=== PATIENT | female | born 1955 | race Hispanic/Latino ===

== ENCOUNTER → 2019-02-23 | Outpatient (CLI) | payer BC | END | disposition home or self-care (01) | LOC: RAH 07:39 | PROVIDERS: ATTEND Family Medicine | DX: Z12.31 Encounter for screening mammogram for malignant neoplasm of breast (principal) | CPT/HCPCS: 77067 ==

== ENCOUNTER 2019-09-23 06:58 | Inpatient (IN) | payer BC ==
[~2019-09-23] VITALS: Ht 170.2 cm; Wt 72.6 kg
[2019-09-23] VITALS (21 sets, daily range): BP systolic 119–159; BP diastolic 44–76
[~2019-09-23 06:58] MED LIST: ONDANSETRON HCL 4 MG/2 ML VIAL ONE
[2019-09-23 07:13] LABS: BASOPHILS % (AUTO) 0.3 % (0.0-5.0); EOSINOPHILS % (AUTO) 0.2 % (0.0-8.0); HEMATOCRIT 32.6 % (36-48); LYMPHOCYTES % (AUTO) 5.5 % (21.0-51.0); MEAN CORPUSCULAR HEMOGLOBIN 30.9 pg (27.0-33.0); MEAN CORPUSCULAR HGB CONC 33.1 g/dL (32.0-36.0); MEAN CORPUSCULAR VOLUME 93.1 fL (79-99); MONOCYTES % (AUTO) 3.8 % (3.0-13.0); NEUTROPHILS % (AUTO) 89.2 % (40.0-77.0); PLATELET COUNT (AUTO) 465 K/uL (130-400); RED CELL DISTRIBUTION WIDTH 13.7 % (11.0-15.5)
[2019-09-23 07:16] LABS: WHITE BLOOD COUNT (AUTO) 31.5 K/uL (4.8-10.8)
[2019-09-23 07:22] LABS: CREATININE 0.9 mg/dL (0.5-1.5)
[2019-09-23 07:29] LABS: ALBUMIN 2.4 g/dL (3.5-5.0); BILIRUBIN,TOTAL 0.9 mg/dL (0.2-1.0); TOTAL PROTEIN, SERUM 6.4 g/dL (6.0-8.3)
[2019-09-23 07:38] LABS: BAND NEUTROPHILS % (MANUAL) 1 % (0-2); LYMPHOCYTES % (MANUAL) 10 % (22-44); MAN.DIFF COMMENT-IMPRESSION MANUAL DIFFERENTIAL; PLATELET MORPHOLOGY COMMENT SLIGHT INCREASED; SEGMENTED NEUTROPHILS % 89 % (40-70)
[2019-09-23 07:45] LABS: APPEARANCE,URINE Clear (CLEAR); BILIRUBIN,URINE Negative (NEGATIVE); COLOR,URINE Yellow (YELLOW); GLUCOSE, URINE (UA) 250 mg/dL (NEGATIVE); KETONES,URINE Negative (NEGATIVE); LEUKOCYTE ESTERASE ,URINE Negative (NEGATIVE); NITRATE,URINE Negative (NEGATIVE); OCCULT BLOOD,URINE Negative (NEGATIVE); PROTEIN,URINE POS 2+ mg/dL (NEGATIVE)
[2019-09-23] MEDS ORDERED: ZOSYN 3.375GM+NS 50ML 50 ML IV ONE (07:46)
[2019-09-23] MEDS ORDERED: MORPHINE SULFATE 4 MG/1ML SYG ONE ×2 (07:48→10:51)
[2019-09-23] MEDS ORDERED: SODIUM CHLORIDE 0.9% 1000ML 1,000 ML IV ONE ×3 (07:48→11:25)
[2019-09-23 07:51] LABS: BACTERIA,URINE Rare /HPF (None Seen); RBC,URINE 0-1 /HPF (0-1); SQUAMOUS EPITHELIAL CELL,UR Moderate /HPF (0-2)
[2019-09-23] MEDS ORDERED: VANCOMYCIN 1GM+NS 250ML 250 ML IV ONE (09:10)
[2019-09-23] MEDS ORDERED: ONDANSETRON HCL 4 MG/2 ML VIAL ONE ×2 (09:39→18:11)
[2019-09-23] MEDS ORDERED: SODIUM CHLORIDE 0.9% 100 ML IV ONE (10:11)
[2019-09-23] MEDS ORDERED: SODIUM CHLORIDE 0.9% 250 ML IV ONE ×2 (10:32→23:27)
[2019-09-23 10:38] LABS: INR 1.02 (0.85-1.15); PARTIAL THROMBOPLASTIN TIME 32.7 SEC (26.3-35.5); PROTHROMBIN TIME 10.7 SEC (9.6-11.6)
[2019-09-23] MEDS ORDERED: ACETAMINOPHEN 325 MG TAB PO PRN (11:15)
[2019-09-23] MEDS ORDERED: MORPHINE SULFATE 2 MG/ML 1ML SYG IVP PRN (11:15)
[2019-09-23] MEDS ORDERED: VANCOMYCIN PROTOCOL PER PHARMACY IV SCH (11:15)
[2019-09-23] MEDS ORDERED: ONDANSETRON HCL 4 MG/2 ML VIAL IVP PRN (11:15)
[2019-09-23] MEDS ORDERED: SODIUM CHLORIDE 0.9% 1000ML 1,000 ML IV SCH (11:15)
[2019-09-23] MEDS ORDERED: MORPHINE SULFATE 4 MG/1ML SYG IVP PRN (13:30)
[2019-09-23 13:55] LABS: HEMATOCRIT 26.9 % (36-48)
[2019-09-23] MEDS ORDERED: FLUCONAZOLE 200 MG/NS 100 ML 100 ML IV SCH (14:00)
[2019-09-23] MEDS: FLUCONAZOLE 200 MG/NS 100 ML 100 ML IV SCH (14:30)
--- NOTE | 2019-09-23 15:33 | NUR ---
DCP: HOME met with pt's Jhon Vargas [phone]. reports pt retired from [employer] job last week. Prior to admission pt was independent, no DME or in home care services. states plan is home at discharge Addendum: 09/23/19 at 1535 by SHAYY DEL CASTILLO SS Amended: Links added.
[2019-09-23] MEDS: ZOSYN 3.375GM+NS 50ML 50 ML IV SCH ×2 (15:53→23:52)
[2019-09-23] MEDS ORDERED: NEOSTIGMINE 5MG/5ML SYR IV ONE (18:11)
[2019-09-23] MEDS ORDERED: DEXAMETHASONE SOD PHOSPHATE 10MG/ML 1ML VIAL ONE (18:11)
[2019-09-23] MEDS ORDERED: MIDAZOLAM HCL 1 MG/ML 2ML VIAL ONE (18:11)
[2019-09-23] MEDS ORDERED: GLYCOPYRROLATE 1 MG/5 ML SYRINGE ONE (18:11)
[2019-09-23] MEDS ORDERED: SUCCINYLCHOLINE 200MG/10ML SYR ONE (18:11)
[2019-09-23] MEDS ORDERED: PROPOFOL 10 MG/ML 20ML VIAL IV ONE (18:11)
[2019-09-23] MEDS ORDERED: LIDOCAINE PF 2% 5ML ABBOJECT ONE (18:11)
[2019-09-23] MEDS ORDERED: FENTANYL CITRATE PF 50 MCG/1 ML 2ML VIAL ONE (18:12)
[2019-09-23] MEDS ORDERED: ROCURONIUM 10MG/1ML SYR 10 MG/ML ML ONE (18:12)
[2019-09-23] MEDS ORDERED: ALBUMIN (HUMAN) 5% 500 ML IV ONE (19:15)
[2019-09-23] MEDS ORDERED: PROPOFOL 1000 MG/100 ML 100 ML IV ONE (20:38)
--- NOTE | 2019-09-23 20:45 | NUR ---
OR 2020 REPORT RECEIVED FROM MAREK FONSECA FROM OR. 2040 PATIENT ARRIVED VIA BED TO ROOM 209 ACCOMPANIED BY RN AND AVELINA LY. PATIENT ARRIVED INTUBATED. RT AT BEDSIDE PROVIDED VENT SETTINGS AND CONNECTED TO VENTILATOR. MIDLINE INCISION TO ABDOMEN NOTED W KELLY DRAIN. KELLY DRAINING SANGUINEOUS FLUID. NG TO LEFT NARE WITH BROWN DRAINAGE NOTED. PATIENT COLD TO TOUCH, NORMOTHERMIC. VS WNL. BRUISING NOTED TO EYES, CHIN/NECK AND ABDOMEN FROM RECENT COSMETIC PROCEDURES. ORDERS RECEIVED FROM [employer]. ENTERED INTO SYSTEM. 2042 DR CM CALLED AND PROVIDED UPDATED IN INTERVENTION PERFORMED IN OR. STATED WAS NOTE ABLE TO LOCATE SPOUSE AFTER PROCEDURE. ASSESSMENT COMPLETED.
[2019-09-23] MEDS ORDERED: ZOSYN 3.375GM+NS 50ML 50 ML IV SCH (21:00)
[2019-09-23] MEDS ORDERED: PROPOFOL 1000 MG/100 ML IV PRN (21:00)
[2019-09-23] MEDS: VANCOMYCIN 1GM+NS 250ML 250 ML IV SCH (21:39)
[2019-09-23 21:40] LABS: HEMATOCRIT 21.3 % (36-48)
--- NOTE | 2019-09-23 21:56 | NUR ---
XRAY RADIOLOGY PAGED AGAIN. NOTIFIED OF PENDING CXR POST OP/ETT PLACEMENT
[2019-09-23 22:14] LABS: ABG BASE EXCESS -3.9 mmol/L (-2.0-3.0); ABG HCO3 20.6 mmol/L (21.0-28.0); ABG OXYGEN SATURATION 99.2 % (95.0-99.0); ABG PCO2 36 mmHg (32-45)
--- NOTE | 2019-09-23 22:25 | NUR ---
CRITICAL CARE CXR COMPLETED. ABG COMPLETED. FIO2 TITRATED TO 40%. H/H RESULTED WITH HGB 6.8. PATIENT HEMODYNAMICALLY STABLE. SEDATED WITH PROPOFOL. NOW WITHDRAWING TO PAIN. CC DR FLORES CALLED AND UPDATED ON PATIENT CONDITION. ABG AND MOST RECENT LAB RESULTS PROVIDED. ORDERS RECEIVED AND ENTERED INTO SYSTEM
[2019-09-23] MEDS ORDERED: FENTANYL CITRATE PF 0.05 MG/ML 1,000 MCG in SODIUM CHLORIDE 0.9% 100 ML IVPB PRN (22:30)
[2019-09-23] MEDS ORDERED: FENTANYL 1000MCG+NS 100ML 100 ML ONE (23:26)
[2019-09-23] MEDS: LACTATED RINGERS 1000ML 1,000 ML IV SCH (23:55)
[2019-09-23] MEDS: PANTOPRAZOLE SODIUM 80 MG in SODIUM CHLORIDE 0.9% 100 ML IV SCH (23:58)
[2019-09-24] VITALS (45 sets, daily range): BP systolic 118–158; BP diastolic 19–86
[2019-09-24] MEDS: LACTATED RINGERS 1000ML 1,000 ML IV SCH ×3 (03:03→15:41)
[2019-09-24] MEDS: ZOSYN 3.375GM+NS 50ML 50 ML IV SCH ×3 (05:21→20:28)
--- NOTE | 2019-09-24 05:30 | NUR ---
BLOOD TRANSFUSION 0400 BLOOD TRANSFUSION COMPLETE. REPEAT H/H COMPLETED. RESULTED HGB 8.0.
[2019-09-24 05:41] LABS: BASOPHILS % (AUTO) 0.2 % (0.0-5.0); HEMATOCRIT 24.9 % (36-48); LYMPHOCYTES % (AUTO) 4.2 % (21.0-51.0); MEAN CORPUSCULAR HEMOGLOBIN 29.4 pg (27.0-33.0); MEAN CORPUSCULAR HGB CONC 32.1 g/dL (32.0-36.0); MEAN CORPUSCULAR VOLUME 91.5 fL (79-99); MONOCYTES % (AUTO) 2.3 % (3.0-13.0); NEUTROPHILS % (AUTO) 92.4 % (40.0-77.0); PLATELET COUNT (AUTO) 339 K/uL (130-400); RED BLOOD CELL COUNT(AUTO) 2.72 MIL/uL (4.00-5.50); RED CELL DISTRIBUTION WIDTH 15.4 % (11.0-15.5); WHITE BLOOD COUNT (AUTO) 23.6 K/uL (4.8-10.8)
[2019-09-24 05:50] LABS: CREATININE 0.7 mg/dL (0.5-1.5); POTASSIUM 3.8 mmol/L (3.5-5.1)
[2019-09-24] MEDS: FLUCONAZOLE 200 MG/NS 100 ML 100 ML IV SCH (08:35)
[2019-09-24] MEDS: VANCOMYCIN 1GM+NS 250ML 250 ML IV SCH ×2 (08:36→21:38)
[2019-09-24] MEDS ORDERED: FLUCONAZOLE 200 MG/NS 100 ML 100 ML IV SCH (09:00)
[2019-09-24 09:46] LABS: ABG BASE EXCESS -1.4 mmol/L (-2.0-3.0); ABG HCO3 21.9 mmol/L (21.0-28.0); ABG OXYGEN SATURATION 98.5 % (95.0-99.0); ABG PCO2 33 mmHg (32-45)
[2019-09-24 13:04] LABS: HEMATOCRIT 24.9 % (36-48)
[2019-09-24] MEDS: ONDANSETRON HCL 4 MG/2 ML VIAL IVP PRN (14:58)
[2019-09-24] MEDS: MORPHINE SULFATE 2 MG/ML 1ML SYG IV PRN ×3 (14:59→22:50)
[2019-09-24 21:03] LABS: HEMATOCRIT 24.7 % (36-48)
--- NOTE | 2019-09-24 21:30 | NUR ---
5FR 2 LUMEN PICC INSERTED TO LEFT BASILIC VEIN, USING ASEPTIC TECHNIQUE. (+) VPS BULLSEYE INDICATES PICC TIP IN LOWER 1/3 OF SVC. PICC OK TO USE PER VPS PROTOCOL
[2019-09-25] VITALS (15 sets, daily range): BP systolic 121–158; BP diastolic 63–76
[2019-09-25] MEDS: PANTOPRAZOLE SODIUM 80 MG in SODIUM CHLORIDE 0.9% 100 ML IV SCH ×2 (00:43→11:43)
[2019-09-25] MEDS: ZOSYN 3.375GM+NS 50ML 50 ML IV SCH ×3 (03:41→18:40)
[2019-09-25] MEDS: LACTATED RINGERS 1000ML 1,000 ML IV SCH ×3 (03:46→16:34)
[2019-09-25 04:36] LABS: BASOPHILS % (AUTO) 0.1 % (0.0-5.0); EOSINOPHILS % (AUTO) 0.1 % (0.0-8.0); HEMATOCRIT 23.2 % (36-48); LYMPHOCYTES % (AUTO) 12.3 % (21.0-51.0); MEAN CORPUSCULAR HEMOGLOBIN 29.5 pg (27.0-33.0); MEAN CORPUSCULAR HGB CONC 32.3 g/dL (32.0-36.0); MEAN CORPUSCULAR VOLUME 91.3 fL (79-99); NEUTROPHILS % (AUTO) 81.7 % (40.0-77.0); PLATELET COUNT (AUTO) 346 K/uL (130-400); RED BLOOD CELL COUNT(AUTO) 2.54 MIL/uL (4.00-5.50); RED CELL DISTRIBUTION WIDTH 15.4 % (11.0-15.5); WHITE BLOOD COUNT (AUTO) 17.3 K/uL (4.8-10.8)
[2019-09-25 04:54] LABS: CREATININE 0.7 mg/dL (0.5-1.5); MAGNESIUM 2.2 mg/dL (1.80-2.40); POTASSIUM 3.5 mmol/L (3.5-5.1)
[2019-09-25] MEDS: MORPHINE SULFATE 2 MG/ML 1ML SYG IV PRN (06:56)
[2019-09-25] MEDS: FLUCONAZOLE 200 MG/NS 100 ML 100 ML IV SCH (08:46)
[2019-09-25] MEDS: VANCOMYCIN 1GM+NS 250ML 250 ML IV SCH ×2 (09:35→20:25)
--- NOTE | 2019-09-25 12:44 | NUR ---
REPORT GIVEN TO GUERA Dasilva ALL QUESTIONS ANSWERED. INFORMED PATIENT WILL BE DUE TO VOID. INFORMED DR CM HAS NOT ROUNDED YET TODAY.
--- NOTE | 2019-09-25 12:58 | NUR ---
PATIENT TRANSFERRED TO [facility] IN STABLE CONDITION AND ON TELE PACK WITH RN. MET IN ROOM BY GUERA Dasilva
[2019-09-25 15:38] LABS: HEMATOCRIT 24.4 % (36-48)
[2019-09-25] MEDS: MORPHINE SULFATE 4 MG/1ML SYG IV PRN (20:25)
[2019-09-25 21:23] LABS: HEMATOCRIT 24.4 % (36-48)
[2019-09-26] MEDS: LACTATED RINGERS 1000ML 1,000 ML IV SCH ×5 (01:53→21:43)
[2019-09-26] MEDS: PANTOPRAZOLE SODIUM 80 MG in SODIUM CHLORIDE 0.9% 100 ML IV SCH ×3 (01:56→23:07)
[2019-09-26 03:00] VITALS: BP 153/74
[2019-09-26] MEDS: ZOSYN 3.375GM+NS 50ML 50 ML IV SCH ×3 (03:18→20:20)
[2019-09-26] MEDS: MORPHINE SULFATE 4 MG/1ML SYG IV PRN ×3 (03:18→13:00)
[2019-09-26 03:58] VITALS: BP 154/80
[2019-09-26 07:30] VITALS: BP 142/70
[2019-09-26] MEDS: FLUCONAZOLE 200 MG/NS 100 ML 100 ML IV SCH (07:56)
[2019-09-26] MEDS: VANCOMYCIN 1GM+NS 250ML 250 ML IV SCH ×2 (10:01→20:23)
[2019-09-26 11:30] VITALS: BP 131/90
[2019-09-26] MEDS ORDERED: ENOXAPARIN SODIUM 30 MG/0.3 ML SQ SCH (11:30)
[2019-09-26 13:12] LABS: HEMATOCRIT 27.9 % (36-48); MEAN CORPUSCULAR HEMOGLOBIN 29.5 pg (27.0-33.0); MEAN CORPUSCULAR VOLUME 89.4 fL (79-99); NUCLEATED RED BLOOD CELLS 0.3 % (0.0-0.19); PLATELET COUNT (AUTO) 501 K/uL (130-400); RED BLOOD CELL COUNT(AUTO) 3.12 MIL/uL (4.00-5.50); RED CELL DISTRIBUTION WIDTH 14.1 % (11.0-15.5); WHITE BLOOD COUNT (AUTO) 15.1 K/uL (4.8-10.8)
[2019-09-26 13:34] LABS: CREATININE 0.6 mg/dL (0.5-1.5)
[2019-09-26 14:35] LABS: EOSINOPHILS % (MANUAL) 1 % (1-6); LYMPHOCYTES % (MANUAL) 11 % (22-44); MONOCYTES % (MANUAL) 4 % (2-9); SEGMENTED NEUTROPHILS % 84 % (40-70)
[2019-09-26 14:36] LABS: MAN.DIFF COMMENT-IMPRESSION MANUAL DIFFERENTIAL; PLATELET MORPHOLOGY COMMENT SLIGHT INC
[2019-09-26] MEDS ORDERED: POTASSIUM CHLORIDE 10% ELIXIR 20 MEQ/15 ML UDCUP PO PRN (14:45)
[2019-09-26] MEDS ORDERED: LIDOCAINE HCL-MPF 1% 2ML VIAL IV PRN (14:45)
[2019-09-26] MEDS ORDERED: POTASSIUM CHLORIDE 20MEQ/100ML 100 ML IV PRN (14:45)
[2019-09-26] MEDS ORDERED: POTASSIUM CHLORIDE 20 MEQ ERTAB PO PRN (14:45)
[2019-09-26 15:30] VITALS: BP 138/74
[2019-09-26 20:20] VITALS: BP 152/75
[2019-09-26] MEDS: MORPHINE SULFATE 2 MG/ML 1ML SYG IV PRN ×2 (20:21→23:12)
[2019-09-27] VITALS (7 sets, daily range): BP systolic 135–160; BP diastolic 64–85
[2019-09-27] MEDS: ZOSYN 3.375GM+NS 50ML 50 ML IV SCH ×2 (04:05→21:13)
[2019-09-27] MEDS: MORPHINE SULFATE 2 MG/ML 1ML SYG IV PRN ×2 (04:06→21:46)
[2019-09-27 05:36] LABS: BASOPHILS % (AUTO) 0.4 % (0.0-5.0); EOSINOPHILS % (AUTO) 1.7 % (0.0-8.0); HEMATOCRIT 26.2 % (36-48); LYMPHOCYTES % (AUTO) 14.3 % (21.0-51.0); MEAN CORPUSCULAR HEMOGLOBIN 29.2 pg (27.0-33.0); MEAN CORPUSCULAR HGB CONC 32.8 g/dL (32.0-36.0); MEAN CORPUSCULAR VOLUME 88.8 fL (79-99); MONOCYTES % (AUTO) 8.8 % (3.0-13.0); NEUTROPHILS % (AUTO) 72.9 % (40.0-77.0); NUCLEATED RED BLOOD CELLS 0.2 % (0.0-0.19); PLATELET COUNT (AUTO) 501 K/uL (130-400); RED BLOOD CELL COUNT(AUTO) 2.95 MIL/uL (4.00-5.50); RED CELL DISTRIBUTION WIDTH 13.5 % (11.0-15.5); WHITE BLOOD COUNT (AUTO) 11.4 K/uL (4.8-10.8)
[2019-09-27 06:07] LABS: ALBUMIN 1.9 g/dL (3.5-5.0); BILIRUBIN,TOTAL 1.1 mg/dL (0.2-1.0); CREATININE 0.6 mg/dL (0.5-1.5); TOTAL PROTEIN, SERUM 5.5 g/dL (6.0-8.3)
[2019-09-27] MEDS: ONDANSETRON HCL 4 MG/2 ML VIAL IVP PRN ×2 (06:13→21:46)
[2019-09-27 06:30] LABS: POTASSIUM 2.9 mmol/L (3.5-5.1)
[2019-09-27] MEDS: MORPHINE SULFATE 4 MG/1ML SYG IV PRN (06:55)
--- NOTE | 2019-09-27 07:50 | NUR ---
ASSESSMENT ENCOUNTERED PT ASLEEP BUT AROUSEABLE A&OX3, CALM COOPERATIVE AND DOES NOT APPEAR TO BE IN ANY DISTRESS NOR ANY NEURO DEFICITS PRESENT. ABDOMINAL INCISION WITH SANTOSH DRY AND INTACT, KELLY DRAIN PRESENT WITH SEROSANGUINEOUS DRAINAGE, PT DENIES PAIN, SOB, NAUSEA. PT IS NPO. PT IS AMBULATORY, GAIT SLOW BUT STEADY WITH STAND BY ASSIST. PICC LINE TO LEFT UPPER ARM WITH 2 PORTS PATENT. NIMO LIGHT WITHIN REACH, FAMILY AT BEDSIDE.
[2019-09-27] MEDS: FLUCONAZOLE 200 MG/NS 100 ML 100 ML IV SCH (11:19)
[2019-09-27] MEDS: LACTATED RINGERS 1000ML 1,000 ML IV SCH (11:20)
[2019-09-27] MEDS: ENOXAPARIN SODIUM 30 MG/0.3 ML SQ SCH (11:20)
[2019-09-27] MEDS ORDERED: ZOSYN 3.375GM+NS 50ML 50 ML IV SCH (13:39)
[2019-09-27] MEDS ORDERED: ZOSYN 3.375GM+NS 50ML 50 ML IV ONE (13:44)
[2019-09-27] MEDS: VANCOMYCIN 1GM+NS 250ML 250 ML IV SCH ×2 (13:56→21:13)
[2019-09-27] MEDS ORDERED: LIDOCAINE HCL-MPF 1% 2ML VIAL IV PRN (15:30)
[2019-09-27] MEDS: POTASSIUM CHLORIDE 20MEQ/100ML 100 ML IV PRN ×2 (15:56→17:41)
[2019-09-27] MEDS: PANTOPRAZOLE SODIUM 80 MG in SODIUM CHLORIDE 0.9% 100 ML IV SCH (16:00)
[2019-09-27] MEDS ORDERED: COMPOUND IV REFRIGERATED 1 EACH IVSOLN MISC PRN (16:00)
[2019-09-27] MEDS: POTASSIUM CHLORIDE 20 MEQ in LACTATED RINGERS 1000ML 1,000 ML IV SCH ×2 (17:40→23:58)
[2019-09-28] MEDS: ONDANSETRON HCL 4 MG/2 ML VIAL IVP PRN (02:21)
[2019-09-28] MEDS: MORPHINE SULFATE 2 MG/ML 1ML SYG IV PRN (02:22)
[2019-09-28] MEDS: PANTOPRAZOLE SODIUM 80 MG in SODIUM CHLORIDE 0.9% 100 ML IV SCH ×2 (02:30→16:14)
[2019-09-28 03:19] VITALS: BP 149/68
[2019-09-28 04:09] LABS: BASOPHILS % (AUTO) 0.4 % (0.0-5.0); EOSINOPHILS % (AUTO) 2.5 % (0.0-8.0); HEMATOCRIT 25.4 % (36-48); LYMPHOCYTES % (AUTO) 17.5 % (21.0-51.0); MEAN CORPUSCULAR HEMOGLOBIN 29.8 pg (27.0-33.0); MEAN CORPUSCULAR HGB CONC 33.5 g/dL (32.0-36.0); MEAN CORPUSCULAR VOLUME 89.1 fL (79-99); MONOCYTES % (AUTO) 12.1 % (3.0-13.0); NEUTROPHILS % (AUTO) 65.4 % (40.0-77.0); PLATELET COUNT (AUTO) 576 K/uL (130-400); RED BLOOD CELL COUNT(AUTO) 2.85 MIL/uL (4.00-5.50); WHITE BLOOD COUNT (AUTO) 10.2 K/uL (4.8-10.8)
[2019-09-28 04:34] LABS: BILIRUBIN,TOTAL 0.8 mg/dL (0.2-1.0); CREATININE 0.6 mg/dL (0.5-1.5); POTASSIUM 3.1 mmol/L (3.5-5.1); TOTAL PROTEIN, SERUM 5.6 g/dL (6.0-8.3)
[2019-09-28] MEDS: VANCOMYCIN 1GM+NS 250ML 250 ML IV SCH (05:28)
[2019-09-28] MEDS: ZOSYN 3.375GM+NS 50ML 50 ML IV SCH ×3 (05:28→21:27)
[2019-09-28] MEDS: POTASSIUM CHLORIDE 20MEQ/100ML 100 ML IV PRN ×2 (05:29→10:27)
--- NOTE | 2019-09-28 07:45 | NUR ---
ASSESSMENT ENCOUNTERED PT A&OX3, CALM COOPERATIVE AND DOES NOT APPEAR TO BE IN ANY DISTRESS NOR ANY NEURO DEFICITS PRESENT. PT DENIES PAIN, SOB, NAUSEA. PT CONTINUES TO BE NPO PENDING UPPER GI SERIES WITH GASTROGRAFFIN. PT IS AMBULATORY, GAIT SLOW BUT STEADY WITH STAND BY ASSIST. PICC LINE TO LEFT UPPER ARM WITH 2 PORTS PATENT. NIMO LIGHT WITHIN REACH, FAMILY AT BEDSIDE.
[2019-09-28] MEDS ORDERED: COMPOUND IV MISC 1 EACH IVSOLN MISC PRN (08:15)
[2019-09-28] MEDS ORDERED: DIATR MEGLU/DIATRIZOATE SODIUM 30 ML BOTTLE ONE (08:30)
[2019-09-28 08:44] VITALS: BP 161/66
[2019-09-28] MEDS: ASCORBIC ACID 500 MG TAB PO SCH (09:00)
[2019-09-28] MEDS: IRON SUCROSE COMPLEX 100 MG in SODIUM CHLORIDE 0.9% 50 ML IV SCH (10:26)
[2019-09-28] MEDS: POTASSIUM CHLORIDE 20 MEQ in LACTATED RINGERS 1000ML 1,000 ML IV SCH ×3 (10:27→21:31)
[2019-09-28] MEDS: FLUCONAZOLE 200 MG/NS 100 ML 100 ML IV SCH (10:27)
[2019-09-28 11:00] VITALS: BP 164/96
--- NOTE | 2019-09-28 14:20 | NUR ---
CLEAR LIQUID DIET RADIOLOGIST REPORT INFORMED TO DR CM, ORDERS RECEIVED FOR CLEAR LIQUID DIET. PT TOLERATING WATER AND APPLE JUICE WITH NO NAUSEA, VOMITING OR ABDOMINAL PAIN.
[2019-09-28 15:00] VITALS: BP 162/74
[2019-09-28] MEDS ORDERED: CLONIDINE 0.1 MG/ 24 HR PATCH TD SCH (15:15)
[2019-09-28] MEDS ORDERED: HYDROCHLOROTHIAZIDE 25 MG TABLET ONE (15:38)
[2019-09-28] MEDS ORDERED: LISINOPRIL 10 MG TABLET ONE (15:38)
[2019-09-28] MEDS: LISINOPRIL 10 MG TABLET PO SCH (16:13)
[2019-09-28] MEDS: HYDROCHLOROTHIAZIDE 25 MG TABLET PO SCH (16:13)
[2019-09-28] MEDS: ENOXAPARIN SODIUM 30 MG/0.3 ML SQ SCH (16:17)
[2019-09-28 19:06] VITALS: BP 154/80
[2019-09-28 23:05] VITALS: BP 154/67
[2019-09-29] MEDS: ONDANSETRON HCL 4 MG/2 ML VIAL IVP PRN ×2 (01:30→16:30)
[2019-09-29] MEDS: MORPHINE SULFATE 2 MG/ML 1ML SYG IV PRN ×3 (01:31→23:36)
[2019-09-29] MEDS: PANTOPRAZOLE SODIUM 80 MG in SODIUM CHLORIDE 0.9% 100 ML IV SCH ×2 (02:36→12:50)
[2019-09-29 03:47] VITALS: BP 147/52
[2019-09-29 04:15] LABS: BASOPHILS % (AUTO) 0.5 % (0.0-5.0); EOSINOPHILS % (AUTO) 2.9 % (0.0-8.0); HEMATOCRIT 26.1 % (36-48); LYMPHOCYTES % (AUTO) 18.2 % (21.0-51.0); MEAN CORPUSCULAR HEMOGLOBIN 29.8 pg (27.0-33.0); MEAN CORPUSCULAR HGB CONC 33.3 g/dL (32.0-36.0); MEAN CORPUSCULAR VOLUME 89.4 fL (79-99); MONOCYTES % (AUTO) 13.6 % (3.0-13.0); PLATELET COUNT (AUTO) 667 K/uL (130-400); RED BLOOD CELL COUNT(AUTO) 2.92 MIL/uL (4.00-5.50); RED CELL DISTRIBUTION WIDTH 14.5 % (11.0-15.5); WHITE BLOOD COUNT (AUTO) 11.1 K/uL (4.8-10.8)
[2019-09-29 04:51] LABS: BILIRUBIN,TOTAL 0.6 mg/dL (0.2-1.0); CREATININE 0.6 mg/dL (0.5-1.5); MAGNESIUM 1.8 mg/dL (1.80-2.40); PHOSPHORUS 2.6 mg/dL (2.5-4.9); TOTAL PROTEIN, SERUM 5.6 g/dL (6.0-8.3)
[2019-09-29] MEDS: ZOSYN 3.375GM+NS 50ML 50 ML IV SCH ×3 (04:54→20:07)
[2019-09-29] MEDS: POTASSIUM CHLORIDE 20 MEQ in LACTATED RINGERS 1000ML 1,000 ML IV SCH ×2 (06:46→16:31)
[2019-09-29 08:00] VITALS: BP 134/60
[2019-09-29] MEDS: POTASSIUM CHLORIDE 20MEQ/100ML 100 ML IV PRN (09:40)
[2019-09-29] MEDS: FLUCONAZOLE 200 MG/NS 100 ML 100 ML IV SCH (09:40)
[2019-09-29] MEDS: IRON SUCROSE COMPLEX 100 MG in SODIUM CHLORIDE 0.9% 50 ML IV SCH (09:41)
[2019-09-29] MEDS: LISINOPRIL 10 MG TABLET PO SCH (09:42)
[2019-09-29] MEDS: ASCORBIC ACID 500 MG TAB PO SCH (09:42)
[2019-09-29] MEDS: HYDROCHLOROTHIAZIDE 25 MG TABLET PO SCH (09:42)
[2019-09-29] MEDS: ENOXAPARIN SODIUM 30 MG/0.3 ML SQ SCH (09:42)
[2019-09-29 12:00] VITALS: BP 142/65
[2019-09-29] MEDS: ACETAMINOPHEN 325 MG TAB PO PRN (13:54)
[2019-09-29 16:03] VITALS: BP 141/59
--- NOTE | 2019-09-29 16:33 | NUR ---
RDSCREEN - LOS X 6 DAYS Pt admitted for perforated Duodenum, GI Bleed. Pt diet advanced to Clear Liquid. Pt reports tolerating Clear Liquid diet and desires food. When medically feasible, Recommend to advance diet as tolerated to GI soft/bland. RD to continue to monitor. Pt reports no N/V/C/D. Please notify as additional concerns arise. Thank you. Addendum: 09/29/19 at [address] Amended: Links added.
[2019-09-29 20:00] VITALS: BP 150/67
[2019-09-29 23:34] VITALS: BP 156/74
[2019-09-30] MEDS: POTASSIUM CHLORIDE 20 MEQ in LACTATED RINGERS 1000ML 1,000 ML IV SCH ×3 (02:52→16:01)
--- NOTE | 2019-09-30 03:23 | NUR ---
UPDATE 0323 REPORT GIVEN TO NURSE GAYATRI FORTUNE, PT TRANSFERRED RM 425 VIA WHEELCHAIR BELONGINGS WITH PT.
[2019-09-30 03:45] VITALS: BP 135/60
[2019-09-30] MEDS: ZOSYN 3.375GM+NS 50ML 50 ML IV SCH ×3 (05:23→19:57)
[2019-09-30 08:00] VITALS: BP 129/67
[2019-09-30] MEDS: FLUCONAZOLE 200 MG/NS 100 ML 100 ML IV SCH (08:53)
[2019-09-30] MEDS: LISINOPRIL 10 MG TABLET PO SCH (08:53)
[2019-09-30] MEDS: PANTOPRAZOLE SODIUM 40 MG TABLET.DR PO SCH (08:53)
[2019-09-30] MEDS: ASCORBIC ACID 500 MG TAB PO SCH (08:53)
[2019-09-30] MEDS: HYDROCHLOROTHIAZIDE 25 MG TABLET PO SCH (08:54)
[2019-09-30] MEDS: ENOXAPARIN SODIUM 30 MG/0.3 ML SQ SCH (08:54)
[2019-09-30] MEDS ORDERED: MORPHINE SULFATE 2 MG/ML 1ML SYG IV PRN (11:45)
[2019-09-30 12:00] VITALS: BP 124/61
[2019-09-30] MEDS ORDERED: POTASSIUM CHLORIDE 10% ELIXIR 20 MEQ/15 ML UDCUP PO PRN (13:00)
[2019-09-30] MEDS ORDERED: POTASSIUM CHLORIDE 20MEQ/100ML 100 ML IV PRN (13:00)
[2019-09-30] MEDS ORDERED: LIDOCAINE HCL-MPF 1% 2ML VIAL IV PRN (13:00)
[2019-09-30] MEDS ORDERED: POTASSIUM CHLORIDE 20 MEQ ERTAB PO ONE (13:04)
[2019-09-30] MEDS: IRON SUCROSE COMPLEX 100 MG in SODIUM CHLORIDE 0.9% 50 ML IV SCH (13:09)
[2019-09-30 16:00] VITALS: BP 126/66
[2019-09-30] MEDS: POTASSIUM CHLORIDE 20 MEQ ERTAB PO PRN ×2 (16:02→18:15)
[2019-09-30 19:45] VITALS: BP 136/65
[2019-10-01] VITALS (7 sets, daily range): BP systolic 121–141; BP diastolic 47–70
[2019-10-01] MEDS: POTASSIUM CHLORIDE 20 MEQ in LACTATED RINGERS 1000ML 1,000 ML IV SCH ×4 (00:50→21:07)
[2019-10-01] MEDS: ACETAMINOPHEN 325 MG TAB PO PRN ×2 (03:25→17:25)
[2019-10-01] MEDS: ZOSYN 3.375GM+NS 50ML 50 ML IV SCH ×3 (05:47→21:06)
[2019-10-01 06:56] LABS: CREATININE 0.9 mg/dL (0.5-1.5); MAGNESIUM 1.8 mg/dL (1.80-2.40); POTASSIUM 3.5 mmol/L (3.5-5.1)
[2019-10-01] MEDS: HYDROCHLOROTHIAZIDE 25 MG TABLET PO SCH (09:43)
[2019-10-01] MEDS: PANTOPRAZOLE SODIUM 40 MG TABLET.DR PO SCH (09:43)
[2019-10-01] MEDS: ASCORBIC ACID 500 MG TAB PO SCH (09:43)
[2019-10-01] MEDS: LISINOPRIL 10 MG TABLET PO SCH (09:43)
[2019-10-01] MEDS: ENOXAPARIN SODIUM 30 MG/0.3 ML SQ SCH (09:44)
[2019-10-01] MEDS: FLUCONAZOLE 200 MG/NS 100 ML 100 ML IV SCH (09:44)
[2019-10-01] MEDS: IRON SUCROSE COMPLEX 100 MG in SODIUM CHLORIDE 0.9% 50 ML IV SCH (13:39)
--- NOTE | 2019-10-01 18:36 | NUR ---
WOUND CARE SITE CARE DONE TO ABDOMINAL AREA. SANTOSH ARE DRY AND INTACT, NO REDNESS NOTED TO SITE. KELLY DRAIN AREA CLEANSED WITH NS AND APPLIED 4X4 AND TAPE. PT TOLERATED WOUND CARE WELL
[2019-10-02] MEDS ORDERED: DIPHENHYDRAMINE HCL 25 MG CAPSULE PO ONE
[2019-10-02] MEDS ORDERED: DIPHENHYDRAMINE HCL 25 MG CAPSULE ONE (01:09)
[2019-10-02 04:00] VITALS: BP 154/66
[2019-10-02] MEDS: ZOSYN 3.375GM+NS 50ML 50 ML IV SCH (05:12)
[2019-10-02] MEDS: POTASSIUM CHLORIDE 20 MEQ in LACTATED RINGERS 1000ML 1,000 ML IV SCH (05:18)
[2019-10-02 08:00] VITALS: BP 125/72
[2019-10-02] MEDS: LISINOPRIL 10 MG TABLET PO SCH (08:59)
[2019-10-02] MEDS: PANTOPRAZOLE SODIUM 40 MG TABLET.DR PO SCH (09:00)
[2019-10-02] MEDS: ASCORBIC ACID 500 MG TAB PO SCH (09:00)
[2019-10-02] MEDS: HYDROCHLOROTHIAZIDE 25 MG TABLET PO SCH (09:00)
[2019-10-02] MEDS: FLUCONAZOLE 200 MG/NS 100 ML 100 ML IV SCH (09:00)
[2019-10-02] MEDS: ENOXAPARIN SODIUM 30 MG/0.3 ML SQ SCH (09:02)
[2019-10-02 11:38] VITALS: BP 132/68
[2019-10-02] MEDS ORDERED: PANT40TA PO (12:53)
[2019-10-02] MEDS ORDERED: ASCO500T20 PO (12:53)
[2019-10-02] MEDS ORDERED: LISI10TA7 PO (12:53)
[2019-10-02] MEDS ORDERED: FERS325 PO (12:53)
--- NOTE | 2019-10-02 15:09 | NUR ---
picc left upper arm picc removed prior to discharge. patient explained procedure. aseptic technique utilized for dressing removal. patient asked to inhale and exhale as line is removed. PICC line measured at 45cm and consistent with documentation of date of insertion. pressure held for 5 minutes and pressure dressing applied. patient given care instructions. no questions, patient verbalizes understanding.
--- NOTE | 2019-10-02 15:12 | NUR ---
bradly drain discontinuation of right abdominal side BRADLY drain. explained procedure to patient. aseptic technique utilized and the site cleansed with iodine swabs. let air dry. sutures utilized for removal of tie string. patient asked to inhale and exhale as BRADLY drain removed. BRADLY drain intact. pressure dressing applied and instructed to site care. patient denies any pain and or shortness of breath. no bleeding noted to site.
[2019-11-05] MEDS ORDERED: PANT40TA25 PO (11:14)
== END 2019-10-02 16:30 | disposition home or self-care (01) | DRG 853 ==
LOC: EDH 06:58 → EDHIP 11:00 → 2CH 12:22 → 2AH 09-25 12:55 → 4DH 09-30 03:41
PROVIDERS: ADMIT Internal Medicine; ATTEND Internal Medicine
PROC: 30233N1 Transfusion of Nonautologous Red Blood Cells into Peripheral Vein, Percutaneous Approach (ICD-10-PCS; 2019-09-23)
PROC: 05HC33Z Insertion of Infusion Device into Left Basilic Vein, Percutaneous Approach (ICD-10-PCS; 2019-09-23)
PROC: 0D9670Z Drainage of Stomach with Drainage Device, Via Natural or Artificial Opening (ICD-10-PCS; 2019-09-23)
PROC: 0DU907Z Supplement Duodenum with Autologous Tissue Substitute, Open Approach (ICD-10-PCS; principal; 2019-09-23 19:23)
DX: A41.9 Sepsis, unspecified organism (principal); K65.0 Generalized (acute) peritonitis; K26.6 Chronic or unspecified duodenal ulcer with both hemorrhage and perforation; E43 Unspecified severe protein-calorie malnutrition; R65.21 Severe sepsis with septic shock; D62 Acute posthemorrhagic anemia; N17.9 Acute kidney failure, unspecified; E11.9 Type 2 diabetes mellitus without complications; E87.6 Hypokalemia; I10 Essential (primary) hypertension; K59.00 Constipation, unspecified; R09.02 Hypoxemia; R23.3 Spontaneous ecchymoses; Z87.11 Personal history of peptic ulcer disease; Z68.25 Body mass index [BMI] 25.0-25.9, adult; Z88.8 Allergy status to other drugs, medicaments and biological substances
CPT/HCPCS: 36415; 36430; 36600; 71045; 74177; 74240; 80048; 80053; 80202; 81001; 82550; 82803; 82948; 83605; 83690; 83735; 84100; 84132; 84145; 84484; 85014; 85018; 85025; 85060; 85610; 85730; 86850; 86900; 86901; 86922; 87040; 87070; 87076; 87088; 87205; 93005; 94002; 94003; 97039; A4344; C1894; C9113; G0378; J0330; J1100; J1450; J1650; J1756; J2001; J2250; J2270; J2405; J2543; J2704; J2710; J3010; J3370; J3480; J3490; J7030; J7120; P9016; P9045; Q0163; Q9963

== ENCOUNTER 2019-10-28 22:38 | Inpatient (IN) | payer BC ==
[~2019-10-28] VITALS: Ht 170.2 cm; Wt 61.4 kg
[~2019-10-28 22:38] MED LIST changes: +ASCO500T20 PO; +FERS325 PO; +LISI10TA7 PO; -ONDANSETRON HCL 4 MG/2 ML VIAL ONE; +PANT40TA PO
[2019-10-28] MEDS ORDERED: ONDANSETRON HCL 4 MG/2 ML VIAL ONE (22:50)
[2019-10-28] MEDS ORDERED: SODIUM CHLORIDE 0.9% 1000ML 1,000 ML IV ONE (22:51)
[2019-10-28 22:57] LABS: BASOPHILS % (AUTO) 0.5 % (0.0-5.0); EOSINOPHILS % (AUTO) 0.3 % (0.0-8.0); HEMATOCRIT 42.9 % (36-48); LYMPHOCYTES % (AUTO) 18.2 % (21.0-51.0); MEAN CORPUSCULAR HEMOGLOBIN 30.1 pg (27.0-33.0); MEAN CORPUSCULAR HGB CONC 34.3 g/dL (32.0-36.0); MEAN CORPUSCULAR VOLUME 87.9 fL (79-99); MONOCYTES % (AUTO) 11.7 % (3.0-13.0); PLATELET COUNT (AUTO) 384 K/uL (130-400); RED BLOOD CELL COUNT(AUTO) 4.88 MIL/uL (4.00-5.50); RED CELL DISTRIBUTION WIDTH 13.3 % (11.0-15.5); WHITE BLOOD COUNT (AUTO) 12.9 K/uL (4.8-10.8)
[2019-10-28 23:17] LABS: ALBUMIN 4.4 g/dL (3.5-5.0); BILIRUBIN,TOTAL 0.9 mg/dL (0.2-1.0); CREATININE 3.2 mg/dL (0.5-1.5); TOTAL PROTEIN, SERUM 8.4 g/dL (6.0-8.3)
[2019-10-28 23:19] LABS: POTASSIUM 2.3 mmol/L (3.5-5.1)
[2019-10-28] MEDS ORDERED: POTASSIUM CHLORIDE 20MEQ/100ML 100 ML IV ONE (23:29)
[2019-10-29] MEDS ORDERED: ONDANSETRON HCL 4 MG/2 ML VIAL IV PRN (01:15)
[2019-10-29] MEDS ORDERED: LACTULOSE 20 GM/30 ML UDCUP PO PRN (01:45)
[2019-10-29] MEDS ORDERED: KETOROLAC TROMETHAMINE 15MG/ML IV PRN (01:45)
[2019-10-29] MEDS ORDERED: POTASSIUM CHLORIDE 20MEQ/100ML 100 ML IV ONE (02:58)
[2019-10-29] MEDS ORDERED: SODIUM CHLORIDE 0.9% 1000ML 1,000 ML IV ONE (02:59)
[2019-10-29 03:35] VITALS: BP 119/64
[2019-10-29] MEDS: SODIUM CHLORIDE 0.9% 1000ML 1,000 ML IV SCH ×5 (04:01→23:02)
[2019-10-29] MEDS: CEFTRIAXONE SODIUM 1 GM IVP SCH ×2 (04:03→18:30)
[2019-10-29 06:36] LABS: BASOPHILS % (AUTO) 0.4 % (0.0-5.0); EOSINOPHILS % (AUTO) 0.8 % (0.0-8.0); HEMATOCRIT 38.4 % (36-48); LYMPHOCYTES % (AUTO) 23.8 % (21.0-51.0); MEAN CORPUSCULAR HEMOGLOBIN 29.2 pg (27.0-33.0); MEAN CORPUSCULAR HGB CONC 32.3 g/dL (32.0-36.0); MEAN CORPUSCULAR VOLUME 90.6 fL (79-99); MONOCYTES % (AUTO) 14.2 % (3.0-13.0); NEUTROPHILS % (AUTO) 60.4 % (40.0-77.0); PLATELET COUNT (AUTO) 316 K/uL (130-400); RED BLOOD CELL COUNT(AUTO) 4.24 MIL/uL (4.00-5.50); RED CELL DISTRIBUTION WIDTH 13.6 % (11.0-15.5); WHITE BLOOD COUNT (AUTO) 10.9 K/uL (4.8-10.8)
[2019-10-29 06:58] LABS: ALBUMIN 3.4 g/dL (3.5-5.0); BILIRUBIN,TOTAL 0.5 mg/dL (0.2-1.0); CREATININE 2.2 mg/dL (0.5-1.5); MAGNESIUM 2.2 mg/dL (1.80-2.40); TOTAL PROTEIN, SERUM 6.7 g/dL (6.0-8.3)
[2019-10-29 07:03] LABS: POTASSIUM 2.4 mmol/L (3.5-5.1)
[2019-10-29 08:18] VITALS: BP 131/63
[2019-10-29] MEDS ORDERED: FAMOTIDINE/PF 20 MG/2 ML VIAL IV SCH (09:00)
[2019-10-29] MEDS: POTASSIUM CHLORIDE 20MEQ/100ML 100 ML IV PRN ×3 (10:01→23:13)
[2019-10-29 11:36] VITALS: BP 122/61
--- NOTE | 2019-10-29 14:09 | NUR ---
INITIAL SW spoke with patient. Patient lives with spouse, Jhon Vargas, [phone]. No home services. DME: BPM. Patient is able to complete ADL's independently but does not drive. PCP is Dr. Maddie August. Pharmacy is [facility] located on [address] in [place]. DCP is home. Addendum: 10/29/19 at 1411 by GAYLE CORONA SS Amended: Links added.
[2019-10-29 16:22] VITALS: BP 122/58
[2019-10-29] MEDS ORDERED: LIDOCAINE HCL-MPF 1% 2ML VIAL IV PRN (17:30)
[2019-10-29] MEDS ORDERED: PANTOPRAZOLE SODIUM 40 MG TABLET.DR PO SCH (17:30)
[2019-10-29] MEDS ORDERED: POTASSIUM CHLORIDE 20MEQ/100ML 100 ML IV PRN (17:30)
[2019-10-29] MEDS ORDERED: POTASSIUM CHLORIDE 10% ELIXIR 20 MEQ/15 ML UDCUP PO PRN (17:30)
[2019-10-29] MEDS: POTASSIUM CHLORIDE 20 MEQ ERTAB PO PRN ×2 (18:28→22:54)
--- NOTE | 2019-10-29 19:55 | NUR ---
PM Assessment Received pt lying in bed, watching TV, NS reported 1st bag of 2 liters bolus in progress. Routine assessment done, plan of care discuss, reminded to remain on clear liquid diet for now, agreed. Both current IV access noted tender, infiltrated, discontinued aseptically with catheter tip intact, new access initiated with good blood return. Pt aware & agreed to continue coverage of her Potassium at this time.
[2019-10-29 20:01] VITALS: BP 124/66
[2019-10-29] MEDS: LIDOCAINE HCL-MPF 1% 2ML VIAL IV PRN (22:59)
[2019-10-29 23:31] LABS: CREATININE,URINE RANDOM 97 mg/dL (30-135); SODIUM,URINE RANDOM 83 mmol/l (40-220)
[2019-10-29 23:34] LABS: APPEARANCE,URINE Clear (CLEAR); BILIRUBIN,URINE Negative (NEGATIVE); COLOR,URINE Yellow (YELLOW); GLUCOSE, URINE (UA) Negative (NEGATIVE); KETONES,URINE 15 mg/dL (NEGATIVE); LEUKOCYTE ESTERASE ,URINE Moderate (NEGATIVE); NITRATE,URINE Negative (NEGATIVE); OCCULT BLOOD,URINE Negative (NEGATIVE); PH,URINE 7.5 (5.0-8.0); PROTEIN,URINE Negative (NEGATIVE)
[2019-10-29 23:43] LABS: RBC,URINE None Seen /HPF (0-1)
[2019-10-29 23:44] LABS: BACTERIA,URINE Rare /HPF (None Seen); SQUAMOUS EPITHELIAL CELL,UR Rare /HPF (0-2)
[2019-10-29 23:58] VITALS: BP 134/70
[2019-10-30] MEDS: POTASSIUM CHLORIDE 20 MEQ ERTAB PO PRN ×4 (01:38→08:49)
[2019-10-30] MEDS: CEFTRIAXONE SODIUM 1 GM IVP SCH ×2 (01:44→13:34)
[2019-10-30 03:41] VITALS: BP 123/61
[2019-10-30 05:41] LABS: HEMATOCRIT 34.8 % (36-48); MEAN CORPUSCULAR HGB CONC 32.5 g/dL (32.0-36.0); MEAN CORPUSCULAR VOLUME 92.3 fL (79-99); PLATELET COUNT (AUTO) 241 K/uL (130-400); RED BLOOD CELL COUNT(AUTO) 3.77 MIL/uL (4.00-5.50); RED CELL DISTRIBUTION WIDTH 13.5 % (11.0-15.5); WHITE BLOOD COUNT (AUTO) 7.1 K/uL (4.8-10.8)
[2019-10-30 05:54] LABS: CREATININE 0.9 mg/dL (0.5-1.5); PHOSPHORUS 2.2 mg/dL (2.5-4.9); POTASSIUM 3.1 mmol/L (3.5-5.1)
[2019-10-30] MEDS: SODIUM CHLORIDE 0.9% 1000ML 1,000 ML IV SCH ×3 (06:03→18:53)
[2019-10-30 06:05] LABS: BAND NEUTROPHILS % (MANUAL) 1 % (0-2); EOSINOPHILS % (MANUAL) 3 % (1-6); LYMPHOCYTES % (MANUAL) 30 % (22-44); MAN.DIFF COMMENT-IMPRESSION MANUAL DIFFERENTIAL; MONOCYTES % (MANUAL) 3 % (2-9); PLATELET MORPHOLOGY COMMENT ADEQUATE; REACTIVE LYMPHOCYTES 2 % (0-0); SEGMENTED NEUTROPHILS % 61 % (40-70)
[2019-10-30 07:17] VITALS: BP 126/72
[2019-10-30] MEDS: PANTOPRAZOLE SODIUM 40 MG TABLET.DR PO SCH (08:47)
[2019-10-30 10:35] VITALS: BP 124/77
[2019-10-30 15:37] VITALS: BP 134/76
[2019-10-30] MEDS: POTASSIUM CHLORIDE 20MEQ/100ML 100 ML IV PRN (18:01)
[2019-10-30 19:47] VITALS: BP 127/73
--- NOTE | 2019-10-30 20:10 | NUR ---
PM Assessment Received pt with NS at 150cc/hr infusing well, routine assessment done, plan of care discuss, pt hoping to be discharge tomorrow as she claimed did tolerate eating her sandwich dinner earlier as her diet as reported change to heart healthy diet.Pt currently denies discomfort.
[2019-10-30 23:48] VITALS: BP 130/77
[2019-10-31] MEDS: CEFTRIAXONE SODIUM 1 GM IVP SCH ×2 (02:27→14:52)
[2019-10-31] MEDS: SODIUM CHLORIDE 0.9% 1000ML 1,000 ML IV SCH ×3 (02:27→17:53)
[2019-10-31 04:00] VITALS: BP 145/62
[2019-10-31 05:04] LABS: EOSINOPHILS % (AUTO) 3.5 % (0.0-8.0); HEMATOCRIT 34.9 % (36-48); LYMPHOCYTES % (AUTO) 43.5 % (21.0-51.0); MEAN CORPUSCULAR HEMOGLOBIN 29.2 pg (27.0-33.0); MEAN CORPUSCULAR HGB CONC 31.5 g/dL (32.0-36.0); MEAN CORPUSCULAR VOLUME 92.6 fL (79-99); MONOCYTES % (AUTO) 10.7 % (3.0-13.0); NEUTROPHILS % (AUTO) 41.1 % (40.0-77.0); PLATELET COUNT (AUTO) 245 K/uL (130-400); RED BLOOD CELL COUNT(AUTO) 3.77 MIL/uL (4.00-5.50); RED CELL DISTRIBUTION WIDTH 13.6 % (11.0-15.5)
[2019-10-31 05:32] LABS: ALBUMIN 2.7 g/dL (3.5-5.0); BILIRUBIN,TOTAL 0.1 mg/dL (0.2-1.0); CREATININE 0.8 mg/dL (0.5-1.5); POTASSIUM 3.5 mmol/L (3.5-5.1); TOTAL PROTEIN, SERUM 5.4 g/dL (6.0-8.3)
[2019-10-31 07:15] VITALS: BP 144/70
[2019-10-31] MEDS: PANTOPRAZOLE SODIUM 40 MG TABLET.DR PO SCH (09:21)
[2019-10-31] MEDS: POTASSIUM CHLORIDE 20 MEQ ERTAB PO PRN (09:21)
[2019-10-31 10:48] VITALS: BP 139/71
[2019-10-31] MEDS ORDERED: LORATADINE 10 MG TABLET PO SCH (14:30)
[2019-10-31 15:47] VITALS: BP 143/81
[2019-10-31] MEDS ORDERED: POLYETHYLENE GLYCOL 3350 17 GM POWD.PACK PO SCH (18:00)
[2019-10-31] MEDS ORDERED: POLYETHYLENE GLYCOL 3350 17 GM POWD.PACK ONE (18:16)
[2019-10-31 19:22] VITALS: BP 146/74
[2019-10-31] MEDS ORDERED: MAG HYDROX/AL HYDROX/SIMETH ES 30 ML SUSP UDCUP ONE (22:20)
[2019-10-31] MEDS ORDERED: MAG HYDROX/AL HYDROX/SIMETH ES 30 ML SUSP UDCUP PO PRN (22:30)
[2019-10-31 23:53] VITALS: BP 145/75
[2019-11-01] MEDS: CEFTRIAXONE SODIUM 1 GM IVP SCH (02:10)
[2019-11-01 03:38] VITALS: BP 140/75
[2019-11-01 05:25] LABS: BASOPHILS % (AUTO) 0.6 % (0.0-5.0); EOSINOPHILS % (AUTO) 2.3 % (0.0-8.0); HEMATOCRIT 37.7 % (36-48); LYMPHOCYTES % (AUTO) 47.8 % (21.0-51.0); MEAN CORPUSCULAR HEMOGLOBIN 28.9 pg (27.0-33.0); MEAN CORPUSCULAR HGB CONC 30.8 g/dL (32.0-36.0); MEAN CORPUSCULAR VOLUME 93.8 fL (79-99); MONOCYTES % (AUTO) 11.3 % (3.0-13.0); NEUTROPHILS % (AUTO) 37.7 % (40.0-77.0); PLATELET COUNT (AUTO) 284 K/uL (130-400); RED BLOOD CELL COUNT(AUTO) 4.02 MIL/uL (4.00-5.50); RED CELL DISTRIBUTION WIDTH 13.5 % (11.0-15.5); WHITE BLOOD COUNT (AUTO) 6.9 K/uL (4.8-10.8)
[2019-11-01 05:44] LABS: ALBUMIN 2.8 g/dL (3.5-5.0); BILIRUBIN,TOTAL 0.2 mg/dL (0.2-1.0); CREATININE 0.8 mg/dL (0.5-1.5); POTASSIUM 3.4 mmol/L (3.5-5.1); TOTAL PROTEIN, SERUM 5.8 g/dL (6.0-8.3)
[2019-11-01 08:29] VITALS: BP 139/67
[2019-11-01] MEDS: PANTOPRAZOLE SODIUM 40 MG TABLET.DR PO SCH (09:00)
[2019-11-01] MEDS: POLYETHYLENE GLYCOL 3350 17 GM POWD.PACK PO SCH (09:00)
[2019-11-01] MEDS: LORATADINE 10 MG TABLET PO SCH (09:00)
[2019-11-01] MEDS ORDERED: DIATR MEGLU/DIATRIZOATE SODIUM 30 ML BOTTLE ONE (09:10)
[2019-11-01] MEDS ORDERED: MAGNESIUM 2GM PREMIX 50ML 50 ML IV SCH (09:30)
--- NOTE | 2019-11-01 10:10 | NUR ---
PT BACK , FROM GI SERIES . PROCEDURE, PT ASSIT BACK TO BED ,DENIES ANY DISCOMFORT
--- NOTE | 2019-11-01 12:35 | NUR ---
DR. MCCLENDON HERE AND SPOKE WITH PT OF PENDING CARE, . UPDATE OF GI SERIES RESULTS WITH NEW ORDERS TO FOLLOW PLACE NPO FOR NOW .
[2019-11-01 12:37] VITALS: BP 128/71
--- NOTE | 2019-11-01 12:50 | NUR ---
DR. DONOHUE PLACED FOR CONSULTATION FOR EGD. INDICATED
--- NOTE | 2019-11-01 15:15 | NUR ---
DR. MCCLENDON WAS CALLED AND UPDATE OF DR BENAVIDES WANTED A ONE . TO ONE . CONSULTATION . DR CHEN ME TO NOTIFY DR. CM. . FOR THE FOLLOWUP
--- NOTE | 2019-11-01 15:25 | NUR ---
DR. CM WAS CALLED AND UPDATE WANTED A TO CONSULATION RESPOND . DR CM STATED THAT HE WOULD COME TO SEE HER AT THE HOSPITAL .
[2019-11-01 17:47] VITALS: BP 144/76
--- NOTE | 2019-11-01 18:30 | NUR ---
DR. CM HERE AND SPOKE WITH PT OF THE IMAGING RESULTS/ REMINDED DR. CM TO CALL DR.GREEN DR. DR. GUTIERREZ . DR CM STATED THAT HE CALL DR. DONOHUE BUT NO ANSWER . NO FURTHER DETAILS . PLACE PT ON CLEAR LIQ DIET.
[2019-11-01 19:55] VITALS: BP 137/94
[2019-11-01] MEDS: POTASSIUM CHLORIDE 20MEQ/100ML 100 ML IV PRN (21:18)
[2019-11-01] MEDS: LIDOCAINE HCL-MPF 1% 2ML VIAL IV PRN (21:18)
[2019-11-01 23:56] VITALS: BP 157/74
[2019-11-02 03:55] VITALS: BP 141/72
--- NOTE | 2019-11-02 03:57 | NUR ---
NPO Pt remains NPO,pending GI to see her.
[2019-11-02 06:01] LABS: BASOPHILS % (AUTO) 0.8 % (0.0-5.0); EOSINOPHILS % (AUTO) 2.6 % (0.0-8.0); HEMATOCRIT 38.6 % (36-48); LYMPHOCYTES % (AUTO) 42.5 % (21.0-51.0); MEAN CORPUSCULAR HEMOGLOBIN 29.4 pg (27.0-33.0); MEAN CORPUSCULAR HGB CONC 31.9 g/dL (32.0-36.0); MEAN CORPUSCULAR VOLUME 92.1 fL (79-99); NEUTROPHILS % (AUTO) 41.9 % (40.0-77.0); PLATELET COUNT (AUTO) 294 K/uL (130-400); RED BLOOD CELL COUNT(AUTO) 4.19 MIL/uL (4.00-5.50); RED CELL DISTRIBUTION WIDTH 13.5 % (11.0-15.5); WHITE BLOOD COUNT (AUTO) 6.7 K/uL (4.8-10.8)
[2019-11-02 06:23] LABS: BILIRUBIN,TOTAL 0.3 mg/dL (0.2-1.0); CREATININE 0.7 mg/dL (0.5-1.5); POTASSIUM 3.5 mmol/L (3.5-5.1); TOTAL PROTEIN, SERUM 6.2 g/dL (6.0-8.3)
[2019-11-02 07:30] VITALS: BP 137/74
[2019-11-02] MEDS: LORATADINE 10 MG TABLET PO SCH (09:00)
[2019-11-02] MEDS: PANTOPRAZOLE SODIUM 40 MG TABLET.DR PO SCH (09:00)
[2019-11-02] MEDS: POLYETHYLENE GLYCOL 3350 17 GM POWD.PACK PO SCH (09:00)
--- NOTE | 2019-11-02 09:37 | NUR ---
jonna. dr. vazquez for the consult
[2019-11-02 10:40] LABS: BASOPHILS % (AUTO) 0.8 % (0.0-5.0); EOSINOPHILS % (AUTO) 1.8 % (0.0-8.0); LYMPHOCYTES % (AUTO) 43.2 % (21.0-51.0); MEAN CORPUSCULAR HEMOGLOBIN 29.8 pg (27.0-33.0); MEAN CORPUSCULAR VOLUME 93.4 fL (79-99); MONOCYTES % (AUTO) 9.7 % (3.0-13.0); NEUTROPHILS % (AUTO) 44.3 % (40.0-77.0); PLATELET COUNT (AUTO) 296 K/uL (130-400); RED BLOOD CELL COUNT(AUTO) 4.39 MIL/uL (4.00-5.50); RED CELL DISTRIBUTION WIDTH 13.4 % (11.0-15.5); WHITE BLOOD COUNT (AUTO) 6.6 K/uL (4.8-10.8)
[2019-11-02 10:51] LABS: CREATININE 0.7 mg/dL (0.5-1.5); POTASSIUM 4.1 mmol/L (3.5-5.1)
[2019-11-02 10:52] LABS: INR 0.97 (0.85-1.15); PROTHROMBIN TIME 10.5 SEC (9.6-11.6)
[2019-11-02 11:18] VITALS: BP 131/72
[2019-11-02 15:30] VITALS: BP 100/58
[2019-11-02 20:00] VITALS: BP 146/77
[2019-11-03] VITALS (21 sets, daily range): BP systolic 113–156; BP diastolic 5–111
[2019-11-03 05:04] LABS: BASOPHILS % (AUTO) 0.7 % (0.0-5.0); EOSINOPHILS % (AUTO) 2.8 % (0.0-8.0); HEMATOCRIT 38.6 % (36-48); MEAN CORPUSCULAR HEMOGLOBIN 29.1 pg (27.0-33.0); MEAN CORPUSCULAR HGB CONC 31.9 g/dL (32.0-36.0); MEAN CORPUSCULAR VOLUME 91.5 fL (79-99); MONOCYTES % (AUTO) 10.4 % (3.0-13.0); NEUTROPHILS % (AUTO) 43.8 % (40.0-77.0); PLATELET COUNT (AUTO) 305 K/uL (130-400); RED BLOOD CELL COUNT(AUTO) 4.22 MIL/uL (4.00-5.50); RED CELL DISTRIBUTION WIDTH 13.3 % (11.0-15.5); WHITE BLOOD COUNT (AUTO) 7.5 K/uL (4.8-10.8)
[2019-11-03 05:24] LABS: CREATININE 0.7 mg/dL (0.5-1.5); POTASSIUM 3.5 mmol/L (3.5-5.1)
[2019-11-03] MEDS: POTASSIUM CHLORIDE 20MEQ/100ML 100 ML IV PRN (05:55)
[2019-11-03] MEDS: LIDOCAINE HCL-MPF 1% 2ML VIAL IV PRN (05:56)
[2019-11-03] MEDS: POLYETHYLENE GLYCOL 3350 17 GM POWD.PACK PO SCH (09:00)
[2019-11-03] MEDS: PANTOPRAZOLE SODIUM 40 MG TABLET.DR PO SCH (09:00)
[2019-11-03] MEDS: LORATADINE 10 MG TABLET PO SCH (09:00)
[2019-11-03] MEDS ORDERED: PROPOFOL 10 MG/ML 20ML VIAL IV ONE (09:47)
[2019-11-03] MEDS ORDERED: LIDOCAINE HCL 1% 20 ML VIAL ONE (09:49)
[2019-11-03] MEDS ORDERED: SIMETHICONE 40 MG/0.6 ML ML ONE (10:18)
--- NOTE | 2019-11-03 11:16 | NUR ---
SPOKE WITH DR. CM MADE AWARE OF EGD REPORT RECOMMENDING SURGICAL GASTROJEJUNOSTOMY TUBE. PER DR. CM HE WILL SPEAK WITH PATIENT TOMORROW. START CLEAR LIQUIDS. DR. CM AWARE OF EGD FINDINGS
--- NOTE | 2019-11-03 13:19 | NUR ---
LUCRECIA SCREEN - LOS X 5 PT ADMITTED WITH INTRACTABLE NAUSEA/VOMITING. PATIENT WITH CLEAR LIQUID DIET ORDER, PENDING ENDOSCOPY. RECOMMEND CONTINUE POC. RECOMMEND ENSURE CLEAR BID FOR NUTRITIONAL SUPPORT. LUCRECIA TO CONTINUE TO MONITOR. PLEASE NOTIFY ADDITIONAL NUTRITION CONCERNS ARISE. THANK YOU. Addendum: 11/03/19 at [address] Amended: Links added.
[2019-11-03] MEDS ORDERED: PANTOPRAZOLE 40 MG/VIAL IVP SCH (15:00)
[2019-11-04 03:40] VITALS: BP 136/69
[2019-11-04 04:36] LABS: BASOPHILS % (AUTO) 0.5 % (0.0-5.0); EOSINOPHILS % (AUTO) 3.9 % (0.0-8.0); HEMATOCRIT 35.2 % (36-48); LYMPHOCYTES % (AUTO) 48.7 % (21.0-51.0); MEAN CORPUSCULAR HEMOGLOBIN 29.8 pg (27.0-33.0); MEAN CORPUSCULAR VOLUME 90.5 fL (79-99); MONOCYTES % (AUTO) 10.5 % (3.0-13.0); NEUTROPHILS % (AUTO) 36.2 % (40.0-77.0); PLATELET COUNT (AUTO) 296 K/uL (130-400); RED BLOOD CELL COUNT(AUTO) 3.89 MIL/uL (4.00-5.50); RED CELL DISTRIBUTION WIDTH 13.5 % (11.0-15.5); WHITE BLOOD COUNT (AUTO) 5.9 K/uL (4.8-10.8)
[2019-11-04 05:10] LABS: CREATININE 0.7 mg/dL (0.5-1.5); POTASSIUM 3.2 mmol/L (3.5-5.1)
[2019-11-04 08:10] VITALS: BP 140/70
[2019-11-04] MEDS: FAMOTIDINE/PF 20 MG/2 ML VIAL IV SCH ×2 (11:25→20:51)
[2019-11-04] MEDS: POLYETHYLENE GLYCOL 3350 17 GM POWD.PACK PO SCH (11:25)
[2019-11-04] MEDS: POTASSIUM CHLORIDE 20 MEQ ERTAB PO PRN (11:26)
[2019-11-04] MEDS: LORATADINE 10 MG TABLET PO SCH (11:26)
[2019-11-04 11:51] VITALS: BP 125/75
--- NOTE | 2019-11-04 13:40 | NUR ---
DR. MCCLENDON's ROUNDS Doctor stated patient is to continue on clear liquids, that per Dr. Farmer it is too soon for second surgery. That if hospitalist wants to discharge, if patient tolerates clear liquids she can be discharged, as long as she is discharged on liquids, like ensure, and no solids.
[2019-11-04 16:00] VITALS: BP 127/67
--- NOTE | 2019-11-04 16:35 | NUR ---
RD UPDATE - HOME CLEAR LIQUID DIET RECOMMENDATIONS RECOMMEND PT DISCHARGE WITH 2-DAYS ENSURE CLEAR (6 CANS). PT TO FOLLOW LIQUID DIET TOLERATED, PER MD. RECOMMEND PT TO CLEAR LIQUID (JELLO, BROTH, CLEAR BEVERAGES, ENSURE CLEAR ETC.) 1-3 DAYS. ADVANCE TOLERATED TO FULL LIQUID, INCORPORATED CREAMY SOUPS, PUDDING TEXTURES TOLERATED. RECOMMEND PROTEIN POWDERS SUCH ISOPURE OR LOW SUGAR, HIGH PROTEIN (20GM PROTEIN/1GM CHO PER SERVING). PT TO FOLLOW UP WITH MD POST DISCHARGE.
[2019-11-04 20:20] VITALS: BP 128/51
[2019-11-04 23:51] VITALS: BP 136/75
[2019-11-05 04:00] VITALS: BP 122/70
[2019-11-05 05:52] LABS: CREATININE 0.8 mg/dL (0.5-1.5); MAGNESIUM 1.9 mg/dL (1.80-2.40); POTASSIUM 3.2 mmol/L (3.5-5.1)
[2019-11-05] MEDS ORDERED: POTASSIUM CHLORIDE 10% ELIXIR 20 MEQ/15 ML UDCUP PO SCH (08:15)
[2019-11-05 08:47] VITALS: BP 124/65
[2019-11-05] MEDS: FAMOTIDINE/PF 20 MG/2 ML VIAL IV SCH (09:45)
[2019-11-05] MEDS: POLYETHYLENE GLYCOL 3350 17 GM POWD.PACK PO SCH (09:45)
[2019-11-05] MEDS: LORATADINE 10 MG TABLET PO SCH (09:45)
[2019-11-05] MEDS ORDERED: SCOP1PAT10 TD (10:02)
[2019-11-05] MEDS ORDERED: METO5TAB2 PO (10:02)
[2019-11-05] MEDS ORDERED: PANT40TA55 PO ×2 (11:14)
[2019-11-05 11:30] VITALS: BP 132/70
--- NOTE | 2019-11-05 13:43 | NUR ---
NUTRITION EDUCATION LUCRECIA provided Clear/Full Liquid Nutrition education to Pt. Pt with previous duodenal ulcer repair, repair to be adjusted. Liquid diet in the meantime, per . LUCRECIA provided Liquid diet education with recommended sources of protein and nutritional supplementation. LUCRECIA answered all of Pt questions. Pt verbalized understanding. Addendum: 11/05/19 at [address] Amended: Links added.
== END 2019-11-05 14:45 | disposition home or self-care (01) | DRG 380 ==
LOC: EDH 22:38 → EDHIP 10-29 01:15 → 3CH 10-29 03:20
PROVIDERS: ADMIT Internal Medicine; ATTEND Internal Medicine
PROC: 0DJ08ZZ Inspection of Upper Intestinal Tract, Via Natural or Artificial Opening Endoscopic (ICD-10-PCS; principal; 2019-11-03)
DX: K31.5 Obstruction of duodenum (principal); R65.11 Systemic inflammatory response syndrome (SIRS) of non-infectious origin with acute organ dysfunction; N17.9 Acute kidney failure, unspecified; E87.3 Alkalosis; D62 Acute posthemorrhagic anemia; E87.0 Hyperosmolality and hypernatremia; E86.0 Dehydration; E87.6 Hypokalemia; E83.42 Hypomagnesemia; E86.9 Volume depletion, unspecified; R53.81 Other malaise; I10 Essential (primary) hypertension; I25.10 Atherosclerotic heart disease of native coronary artery without angina pectoris; E11.9 Type 2 diabetes mellitus without complications; R93.3 Abnormal findings on diagnostic imaging of other parts of digestive tract; Z98.82 Breast implant status; Z87.11 Personal history of peptic ulcer disease; Z88.8 Allergy status to other drugs, medicaments and biological substances; Z82.0 Family history of epilepsy and other diseases of the nervous system
CPT/HCPCS: 36415; 43235; 74176; 74240; 80048; 80053; 81001; 82150; 82570; 82948; 83690; 83735; 84100; 84132; 84145; 84300; 84484; 85025; 85610; 86677; 87088; 93005; A4606; C9113; G0378; J0696; J2405; J2704; J3475; J3480; J3490; J7030; Q9963

== ENCOUNTER 2019-11-07 09:59 | Inpatient (IN) | payer BC ==
[~2019-11-07] VITALS: Ht 170.2 cm; Wt 60.8 kg
[~2019-11-07 09:59] MED LIST changes: +METO5TAB2 PO; +PANT40TA55 PO; +SCOP1PAT10 TD
[2019-11-07] MEDS ORDERED: ONDANSETRON HCL 4 MG/2 ML VIAL ONE ×2 (10:30→23:33)
[2019-11-07 10:37] LABS: BASOPHILS % (AUTO) 0.5 % (0.0-5.0); HEMATOCRIT 39.5 % (36-48); LYMPHOCYTES % (AUTO) 36.6 % (21.0-51.0); MEAN CORPUSCULAR HGB CONC 32.4 g/dL (32.0-36.0); MEAN CORPUSCULAR VOLUME 89.6 fL (79-99); MONOCYTES % (AUTO) 11.2 % (3.0-13.0); NEUTROPHILS % (AUTO) 50.5 % (40.0-77.0); PLATELET COUNT (AUTO) 413 K/uL (130-400); RED BLOOD CELL COUNT(AUTO) 4.41 MIL/uL (4.00-5.50); RED CELL DISTRIBUTION WIDTH 13.7 % (11.0-15.5); WHITE BLOOD COUNT (AUTO) 9.7 K/uL (4.8-10.8)
[2019-11-07 10:54] LABS: CREATININE 1.2 mg/dL (0.5-1.5); POTASSIUM 3.5 mmol/L (3.5-5.1)
[2019-11-07 10:59] LABS: ALBUMIN 3.7 g/dL (3.5-5.0); BILIRUBIN,TOTAL 0.5 mg/dL (0.2-1.0); TOTAL PROTEIN, SERUM 7.2 g/dL (6.0-8.3)
[2019-11-07] MEDS ORDERED: FAMOTIDINE/PF 20 MG/2 ML VIAL IV SCH (14:34)
[2019-11-07] MEDS ORDERED: PHARMACY COMMUNICATION MISC SCH (15:15)
[2019-11-07 16:00] VITALS: BP 139/68
[2019-11-07] MEDS: D5W-1/2 NS/20MEQ KCL 1,000 ML IV SCH (16:49)
[2019-11-07 19:29] VITALS: BP 138/64
[2019-11-07] MEDS ORDERED: PANTOPRAZOLE SODIUM 40 MG TABLET.DR PO SCH (21:00)
[2019-11-07] MEDS: PANTOPRAZOLE 40 MG/VIAL IVP SCH (21:20)
--- NOTE | 2019-11-07 21:38 | NUR ---
PROTONIX ADMINISTER ADMIN VIA IV. SET PUMP TO 1200 ML/HR VTBI 50 ML. MED BRETT WELL. NO ADVERSE REACTION.
--- NOTE | 2019-11-07 21:42 | NUR ---
PAIN C/O PAIN. NO PAIN MED ORDERED ON SEP. PAGED DIRECTOR HEMATOLOGY ABDIRAHMAN LAFLEUR GAVE TELEPHONE ORDERS- ORDERS PLACED IN [facility].
[2019-11-07] MEDS ORDERED: ONDANSETRON HCL 4 MG/2 ML VIAL IVP PRN (21:45)
[2019-11-07 23:33] VITALS: BP 152/73
[2019-11-07] MEDS ORDERED: MORPHINE SULFATE 2 MG/ML 1ML SYG ONE (23:34)
[2019-11-08] MEDS: D5W-1/2 NS/20MEQ KCL 1,000 ML IV SCH ×2 (02:05→10:45)
[2019-11-08 03:48] VITALS: BP 153/76
--- NOTE | 2019-11-08 05:39 | NUR ---
CONSENT FOR PICC PLACEMENT FELICITA AND IN CHART
[2019-11-08 05:56] LABS: CREATININE 0.9 mg/dL (0.5-1.5); INR 0.99 (0.85-1.15); MAGNESIUM 1.8 mg/dL (1.80-2.40); PARTIAL THROMBOPLASTIN TIME 26.9 SEC (26.3-35.5); POTASSIUM 3.1 mmol/L (3.5-5.1); PROTHROMBIN TIME 10.7 SEC (9.6-11.6)
[2019-11-08] MEDS ORDERED: LIDOCAINE HCL-MPF 1% 2ML VIAL IJ PRN (06:30)
[2019-11-08 08:00] VITALS: BP 142/67
--- NOTE | 2019-11-08 08:15 | NUR ---
Left message for CARLIN Andrade for Dr. Farmer regarding consult. Wanted to verify that Dr. Farmer had been notified of consult at admission.
[2019-11-08] MEDS: POTASSIUM CHLORIDE 20MEQ/100ML 100 ML IV PRN ×2 (10:45→22:06)
[2019-11-08] MEDS: PANTOPRAZOLE 40 MG/VIAL IVP SCH ×2 (10:45→22:06)
[2019-11-08 12:00] VITALS: BP 140/69
--- NOTE | 2019-11-08 13:29 | NUR ---
Called CARLIN Gibbs for Dr. Farmer regarding consult. Left message on mobile.
[2019-11-08] MEDS ORDERED: MAGNESIUM 2GM PREMIX 50ML 50 ML IV PRN (13:30)
--- NOTE | 2019-11-08 14:20 | NUR ---
INITIAL SW spoke with patient. Patient lives with spouse, Jhon Vargas, [phone]. No home services. DME: BPM. Patient is able to complete ADL's independently but does not drive. Family assists with transportation. PCP is Dr. Maddie August. Pharmacy is [facility] located on [address] in [place]. DCP is home. Patient has recently been in the hospital from 09/23/2019-10/02/2019 and 10/29/2019-11/05/2019. Addendum: 11/08/19 at 1422 by GAYLE JANG Amended: Links added.
[2019-11-08] MEDS: METOCLOPRAMIDE 10 MG/2 ML VIAL IVP SCH ×2 (15:04→22:06)
[2019-11-08 16:00] VITALS: BP 135/77
--- NOTE | 2019-11-08 16:08 | NUR ---
LUCRECIA NOTIFICATION - TPN INITIATION Pt re-admitted with gastric outlet obstruction. NGT for suction, PICC placed per EMR. Recommend TPN initiation at 70mls/hr with Intralipid Emulsion (MWF) TO PROVIDE: 1193 kcal + 500 kcal, 84gm Protein. Recommendations placed in Pt chart, RN notified. RD to continue to monitor. Addendum: 11/08/19 at [address] Amended: Links added.
[2019-11-08] MEDS ORDERED: M V I IV SCH ×2 (21:00)
[2019-11-08] MEDS ORDERED: CLINIMIX E IV SCH ×2 (21:00)
[2019-11-08] MEDS: MORPHINE SULFATE 4 MG/1ML SYG IV PRN (22:07)
[2019-11-08 23:59] VITALS: BP 140/76
[2019-11-09] MEDS: D5W-1/2 NS/20MEQ KCL 1,000 ML IV SCH (00:45)
[2019-11-09] MEDS: METOCLOPRAMIDE 10 MG/2 ML VIAL IVP SCH ×4 (00:45→18:33)
[2019-11-09 04:00] VITALS: BP 165/78
[2019-11-09 05:44] LABS: HEMATOCRIT 35.1 % (36-48); MEAN CORPUSCULAR HEMOGLOBIN 29.1 pg (27.0-33.0); MEAN CORPUSCULAR HGB CONC 31.6 g/dL (32.0-36.0); MEAN CORPUSCULAR VOLUME 91.9 fL (79-99); PLATELET COUNT (AUTO) 290 K/uL (130-400); RED BLOOD CELL COUNT(AUTO) 3.82 MIL/uL (4.00-5.50); RED CELL DISTRIBUTION WIDTH 13.7 % (11.0-15.5); WHITE BLOOD COUNT (AUTO) 8.7 K/uL (4.8-10.8)
--- NOTE | 2019-11-09 05:58 | NUR ---
TPN Pt tolerating TPn via Picc to MARIA G.
[2019-11-09 06:02] LABS: EOSINOPHILS % (MANUAL) 1 % (1-6); LYMPHOCYTES % (MANUAL) 30 % (22-44); MONOCYTES % (MANUAL) 6 % (2-9); SEGMENTED NEUTROPHILS % 63 % (40-70)
[2019-11-09 06:03] LABS: MAN.DIFF COMMENT-IMPRESSION MANUAL DIFFERENTIAL
[2019-11-09 06:06] LABS: ALBUMIN 2.7 g/dL (3.5-5.0); BILIRUBIN,TOTAL 0.5 mg/dL (0.2-1.0); CREATININE 0.7 mg/dL (0.5-1.5); MAGNESIUM 2.5 mg/dL (1.80-2.40); PHOSPHORUS 3.1 mg/dL (2.5-4.9); POTASSIUM 3.4 mmol/L (3.5-5.1); TOTAL PROTEIN, SERUM 5.7 g/dL (6.0-8.3)
[2019-11-09] MEDS: POTASSIUM CHLORIDE 20MEQ/100ML 100 ML IV PRN (06:11)
[2019-11-09 08:14] VITALS: BP 116/75
[2019-11-09] MEDS: PANTOPRAZOLE 40 MG/VIAL IVP SCH ×2 (09:59→21:08)
[2019-11-09 11:26] VITALS: BP 144/78
[2019-11-09] MEDS: MORPHINE SULFATE 4 MG/1ML SYG IV PRN (14:33)
[2019-11-09 16:20] VITALS: BP 132/76
[2019-11-09 20:03] VITALS: BP 138/85
[2019-11-09] MEDS ORDERED: M.V.I. IV [ADULT] 10 ML in CLINIMIX E 5%-15% 2,000 ML IV SCH (22:00)
[2019-11-09] MEDS ORDERED: CLINIMIX E 5%-15% 2,000 ML IV SCH (22:00)
[2019-11-09 23:35] VITALS: BP 164/80
[2019-11-10] VITALS (27 sets, daily range): BP systolic 138–210; BP diastolic 66–92
[2019-11-10] MEDS: METOCLOPRAMIDE 10 MG/2 ML VIAL IVP SCH ×4 (01:53→21:08)
[2019-11-10 05:33] LABS: BASOPHILS % (AUTO) 0.4 % (0.0-5.0); EOSINOPHILS % (AUTO) 3.2 % (0.0-8.0); LYMPHOCYTES % (AUTO) 37.8 % (21.0-51.0); MEAN CORPUSCULAR HGB CONC 31.6 g/dL (32.0-36.0); MEAN CORPUSCULAR VOLUME 91.8 fL (79-99); MONOCYTES % (AUTO) 11.1 % (3.0-13.0); NEUTROPHILS % (AUTO) 47.2 % (40.0-77.0); PLATELET COUNT (AUTO) 303 K/uL (130-400); RED BLOOD CELL COUNT(AUTO) 4.03 MIL/uL (4.00-5.50); RED CELL DISTRIBUTION WIDTH 13.3 % (11.0-15.5); WHITE BLOOD COUNT (AUTO) 7.8 K/uL (4.8-10.8)
[2019-11-10 05:37] LABS: INR 0.97 (0.85-1.15); PARTIAL THROMBOPLASTIN TIME 27.4 SEC (26.3-35.5); PROTHROMBIN TIME 10.5 SEC (9.6-11.6)
[2019-11-10 05:48] LABS: ALBUMIN 2.7 g/dL (3.5-5.0); BILIRUBIN,TOTAL 0.5 mg/dL (0.2-1.0); CREATININE 0.7 mg/dL (0.5-1.5); POTASSIUM 3.5 mmol/L (3.5-5.1)
[2019-11-10] MEDS: POTASSIUM CHLORIDE 20MEQ/100ML 100 ML IV PRN (06:10)
[2019-11-10] MEDS ORDERED: LIDOCAINE PF 2% 5ML ABBOJECT ONE (07:40)
--- NOTE | 2019-11-10 07:40 | NUR ---
PT AWAKE, ALERT, AND ORIENTED. VITALS STABLE, DENIES PAIN. PT TAKEN TO PROCEDURE.
[2019-11-10] MEDS ORDERED: ONDANSETRON HCL 4 MG/2 ML VIAL ONE (07:41)
[2019-11-10] MEDS ORDERED: DEXAMETHASONE SOD PHOSPHATE 10MG/ML 1ML VIAL ONE (07:41)
[2019-11-10] MEDS ORDERED: GLYCOPYRROLATE 1 MG/5 ML SYRINGE ONE (07:41)
[2019-11-10] MEDS ORDERED: PROPOFOL 10 MG/ML 20ML VIAL IV ONE (07:41)
[2019-11-10] MEDS ORDERED: LACTATED RINGERS 1000ML 1,000 ML IV ONE (07:42)
[2019-11-10] MEDS ORDERED: NEOSTIGMINE 5MG/5ML SYR IV ONE (07:42)
[2019-11-10] MEDS ORDERED: MIDAZOLAM HCL 1 MG/ML 2ML VIAL ONE (07:42)
[2019-11-10] MEDS ORDERED: ROCURONIUM 10MG/1ML SYR 10 MG/ML ML ONE (07:42)
[2019-11-10] MEDS ORDERED: FENTANYL CITRATE PF 50 MCG/1 ML 2ML VIAL ONE (07:42)
--- NOTE | 2019-11-10 07:47 | NUR ---
potential for infection: shaved entire abdomen per sabine churchill.
[2019-11-10] MEDS ORDERED: CEFAZOLIN SODIUM 1 GM VIAL ONE (08:40)
[2019-11-10] MEDS: PANTOPRAZOLE 40 MG/VIAL IVP SCH ×2 (09:00→21:09)
[2019-11-10] MEDS ORDERED: ALBUMIN (HUMAN) 5% 500 ML IV ONE (09:07)
[2019-11-10] MEDS ORDERED: FENTANYL CITRATE PF 50 MCG/1 ML 5ML AMP IV ONE (09:11)
[2019-11-10] MEDS ORDERED: FAT EMULSIONS 20% 250ML 250 ML IV SCH ×2 (10:00→21:00)
[2019-11-10] MEDS ORDERED: LABETALOL HCL 5 MG/ML 20ML VIAL IV ONE (10:40)
[2019-11-10] MEDS ORDERED: MEPERIDINE-PF 25 MG/ML SYG ONE (11:06)
--- NOTE | 2019-11-10 11:48 | NUR ---
POST-OP RECEIVED PT FROM PROCEDURE. PT LETHARGIC. RESPONDS TO SOUND. STATES PAIN TO ABD. DRESSING TO ABD CLEAN AND DRY. VITALS ARE STABLE. PICC LINE PATENT. WILL CONTINUE TO MONITOR.
[2019-11-10] MEDS: M.V.I. IV [ADULT] 10 ML in CLINIMIX E 5%-15% 2,000 ML IV SCH (12:45)
[2019-11-10] MEDS: KETOROLAC TROMETHAMINE 30MG/ML IV SCH ×2 (13:00→19:20)
[2019-11-10] MEDS: CEFAZOLIN SODIUM 1 GM VIAL IVP SCH ×2 (13:38→21:08)
--- NOTE | 2019-11-10 18:00 | NUR ---
PT IS AWAKE ALERT AND ORIENTED. SITTING UP WATCHING TV. VITALS STABLE, STATES SOME PAIN TO ABD. ASSESSED DRESSING CLEAN AND DRY.
[2019-11-10] MEDS: MORPHINE SULFATE 4 MG/1ML SYG IV PRN (21:07)
[2019-11-11] VITALS: BP 143/62
[2019-11-11] MEDS: METOCLOPRAMIDE 10 MG/2 ML VIAL IVP SCH ×4 (01:07→21:29)
[2019-11-11] MEDS: KETOROLAC TROMETHAMINE 30MG/ML IV SCH ×4 (01:12→21:29)
[2019-11-11 04:45] VITALS: BP 127/59
[2019-11-11] MEDS: M.V.I. IV [ADULT] 10 ML in CLINIMIX E 5%-15% 2,000 ML IV SCH (05:30)
[2019-11-11 05:35] LABS: BASOPHILS % (AUTO) 0.2 % (0.0-5.0); EOSINOPHILS % (AUTO) 0.2 % (0.0-8.0); HEMATOCRIT 36.2 % (36-48); LYMPHOCYTES % (AUTO) 18.6 % (21.0-51.0); MEAN CORPUSCULAR HEMOGLOBIN 29.9 pg (27.0-33.0); MEAN CORPUSCULAR HGB CONC 32.3 g/dL (32.0-36.0); MEAN CORPUSCULAR VOLUME 92.6 fL (79-99); MONOCYTES % (AUTO) 7.2 % (3.0-13.0); NEUTROPHILS % (AUTO) 73.3 % (40.0-77.0); PLATELET COUNT (AUTO) 276 K/uL (130-400); RED BLOOD CELL COUNT(AUTO) 3.91 MIL/uL (4.00-5.50); RED CELL DISTRIBUTION WIDTH 13.2 % (11.0-15.5); WHITE BLOOD COUNT (AUTO) 12.9 K/uL (4.8-10.8)
[2019-11-11 05:58] LABS: INR 0.95 (0.85-1.15); PARTIAL THROMBOPLASTIN TIME 28.5 SEC (26.3-35.5); PROTHROMBIN TIME 10.3 SEC (9.6-11.6)
[2019-11-11 06:00] LABS: CREATININE 0.7 mg/dL (0.5-1.5); POTASSIUM 3.8 mmol/L (3.5-5.1)
[2019-11-11] MEDS: POTASSIUM CHLORIDE 20MEQ/100ML 100 ML IV PRN (06:52)
[2019-11-11 07:30] VITALS: BP 124/70
[2019-11-11] MEDS: PANTOPRAZOLE 40 MG/VIAL IVP SCH ×2 (10:26→21:29)
[2019-11-11 11:00] VITALS: BP_SYST 110; BP_SYST 124; BP_DIAS 62; BP_DIAS 70
[2019-11-11] MEDS: MORPHINE SULFATE 4 MG/1ML SYG IV PRN (12:06)
--- NOTE | 2019-11-11 14:15 | NUR ---
F/C REMOVAL: EMPTIED 300 MLS OF CLEAR YELLOW URINE FROM RAMOS, NO ODOR NOTED. PER MD ORDERS, USING CLEAN TECHNIQUE, REMOVED RAMOS CATHETER @1415. BULB DEFLATED 8 MLS OF FLUID RETURN. F/C TIP INTACT. PT DENIES ANY PAIN OR DISCOMFORT. WILL CONTINUE TO MONITOR.
--- NOTE | 2019-11-11 14:57 | NUR ---
RD FOLLOW UP Pt s/p Ex Lap + Gastric Bypass procedure. Diet advanced to Clear Liquid Diet Order. TPN discontinued. Pt with postop Nausea. RD to monitor for Clear Liquid diet tolerance and gradual advancement. Addendum: 11/11/19 at [address] Amended: Links added.
[2019-11-11 16:00] VITALS: BP 121/65
[2019-11-11 19:00] VITALS: BP 144/74
[2019-11-11] MEDS: BISACODYL 5 MG TABLET.DR PO SCH (21:29)
[2019-11-11] MEDS: DOCUSATE SODIUM 100 MG CAP PO SCH (21:29)
[2019-11-12] VITALS (7 sets, daily range): BP systolic 114–142; BP diastolic 50–71
[2019-11-12] MEDS: METOCLOPRAMIDE 10 MG/2 ML VIAL IVP SCH ×4 (03:12→21:11)
[2019-11-12] MEDS: KETOROLAC TROMETHAMINE 30MG/ML IV SCH ×4 (03:13→21:17)
[2019-11-12 06:14] LABS: BASOPHILS % (AUTO) 0.2 % (0.0-5.0); EOSINOPHILS % (AUTO) 2.6 % (0.0-8.0); HEMATOCRIT 34.7 % (36-48); LYMPHOCYTES % (AUTO) 38.1 % (21.0-51.0); MEAN CORPUSCULAR HGB CONC 32.3 g/dL (32.0-36.0); MONOCYTES % (AUTO) 9.2 % (3.0-13.0); NEUTROPHILS % (AUTO) 49.5 % (40.0-77.0); PLATELET COUNT (AUTO) 250 K/uL (130-400); RED BLOOD CELL COUNT(AUTO) 3.73 MIL/uL (4.00-5.50); RED CELL DISTRIBUTION WIDTH 13.7 % (11.0-15.5); WHITE BLOOD COUNT (AUTO) 8.4 K/uL (4.8-10.8)
[2019-11-12 06:44] LABS: CREATININE 0.7 mg/dL (0.5-1.5); PHOSPHORUS 2.9 mg/dL (2.5-4.9); POTASSIUM 4.1 mmol/L (3.5-5.1)
[2019-11-12] MEDS: PANTOPRAZOLE 40 MG/VIAL IVP SCH ×2 (10:52→21:11)
[2019-11-12] MEDS: DOCUSATE SODIUM 100 MG CAP PO SCH ×2 (10:52→21:11)
[2019-11-12] MEDS: BISACODYL 5 MG TABLET.DR PO SCH ×2 (10:52→21:17)
[2019-11-13] MEDS: KETOROLAC TROMETHAMINE 30MG/ML IV SCH ×3 (03:44→14:48)
[2019-11-13 04:00] VITALS: BP 140/71
[2019-11-13] MEDS: METOCLOPRAMIDE 10 MG/2 ML VIAL IVP SCH ×2 (04:09→09:07)
[2019-11-13 05:53] LABS: BASOPHILS % (AUTO) 0.7 % (0.0-5.0); EOSINOPHILS % (AUTO) 3.2 % (0.0-8.0); HEMATOCRIT 34.1 % (36-48); LYMPHOCYTES % (AUTO) 38.3 % (21.0-51.0); MEAN CORPUSCULAR HEMOGLOBIN 29.3 pg (27.0-33.0); MEAN CORPUSCULAR HGB CONC 31.7 g/dL (32.0-36.0); MEAN CORPUSCULAR VOLUME 92.7 fL (79-99); MONOCYTES % (AUTO) 11.6 % (3.0-13.0); NEUTROPHILS % (AUTO) 46.1 % (40.0-77.0); PLATELET COUNT (AUTO) 263 K/uL (130-400); RED BLOOD CELL COUNT(AUTO) 3.68 MIL/uL (4.00-5.50); RED CELL DISTRIBUTION WIDTH 13.8 % (11.0-15.5); WHITE BLOOD COUNT (AUTO) 6.9 K/uL (4.8-10.8)
[2019-11-13 06:17] LABS: ALBUMIN 2.6 g/dL (3.5-5.0); BILIRUBIN,TOTAL 0.4 mg/dL (0.2-1.0); CREATININE 0.7 mg/dL (0.5-1.5); POTASSIUM 4.2 mmol/L (3.5-5.1); TOTAL PROTEIN, SERUM 5.7 g/dL (6.0-8.3)
[2019-11-13 08:54] VITALS: BP 110/70
[2019-11-13] MEDS: BISACODYL 5 MG TABLET.DR PO SCH (09:07)
[2019-11-13] MEDS: PANTOPRAZOLE 40 MG/VIAL IVP SCH (09:07)
[2019-11-13] MEDS: DOCUSATE SODIUM 100 MG CAP PO SCH (09:07)
[2019-11-13 12:09] VITALS: BP 137/70
--- NOTE | 2019-11-13 13:29 | NUR ---
EDUCATED PATIENT ON EVERSION EXERCISES TO MINIMIZE ANKLE ROLLING. PATIENT WAS ABLE TO RETURN DEMONSTRATE. Addendum: 11/13/19 at 1331 by BARRY GONZALEZ PT Amended: Links added.
[2019-11-13 16:43] VITALS: BP 144/74
--- NOTE | 2019-11-13 18:33 | NUR ---
DISCHARGE PATIENT GIVEN DISCHARGE INSTRUCTIONS AND EDUCATION ON FOLLOW UP APPOINTMENTS,CONTINUED MEDICATIONS(PROTONIX 40 BID), SOFT/BLAND DIET, AND OVER THE COUNTER PAIN MEDICATION. PATIENT VERBALIZED UNDERSTANDING OF ALL EDUCATION GIVEN VIA TEACH BACK. PICC LINE D/C. TIP OF CATHETER INTACT. PRESSURE APPLIED TO SITE FOR A FEW MINUTES UNTIL BLEEDING STOPPED. PATIENT LEFT VIA WHEELCHAIR, PCP AT SIDE, TO PRIVATE CAR. NO DISTRESS NOTED UPON DISCHARGE. PATIENT HAD 3 BOWEL MOVEMENTS TODAY. COMPLAINED OF A LITTLE ABDOMINAL DISCOMFORT /. ALL BELONGINGS TAKEN WITH.
== END 2019-11-13 18:25 | disposition home or self-care (01) | DRG 327 ==
LOC: EDH 09:59 → EDHIP 12:45 → 3DH 15:59
PROVIDERS: ADMIT Internal Medicine; ATTEND Internal Medicine
PROC: 0D9670Z Drainage of Stomach with Drainage Device, Via Natural or Artificial Opening (ICD-10-PCS; 2019-11-07)
PROC: 05HY33Z Insertion of Infusion Device into Upper Vein, Percutaneous Approach (ICD-10-PCS; 2019-11-07)
PROC: 0DJ08ZZ Inspection of Upper Intestinal Tract, Via Natural or Artificial Opening Endoscopic (ICD-10-PCS; 2019-11-10)
PROC: 0D160ZA Bypass Stomach to Jejunum, Open Approach (ICD-10-PCS; principal; 2019-11-10 08:00)
PROC: 3E0436Z Introduction of Nutritional Substance into Central Vein, Percutaneous Approach (ICD-10-PCS; 2019-11-11)
DX: K25.5 Chronic or unspecified gastric ulcer with perforation (principal); K31.1 Adult hypertrophic pyloric stenosis; K31.5 Obstruction of duodenum; N17.9 Acute kidney failure, unspecified; Z88.1 Allergy status to other antibiotic agents; Z88.8 Allergy status to other drugs, medicaments and biological substances; Z87.11 Personal history of peptic ulcer disease; Z82.0 Family history of epilepsy and other diseases of the nervous system; Z82.49 Family history of ischemic heart disease and other diseases of the circulatory system
CPT/HCPCS: 36415; 43235; 74018; 74021; 74176; 74240; 80048; 80053; 81001; 82150; 82570; 82948; 83690; 83735; 84100; 84132; 84145; 84300; 84484; 85025; 85610; 85651; 85730; 86038; 86140; 86215; 86235; 86431; 86677; 87088; 93005; 97039; A4344; A4606; C9113; G0378; J0690; J0696; J1100; J1885; J2001; J2175; J2250; J2270; J2405; J2704; J2710; J2765; J3010; J3475; J3480; J3490; J7030; J7120; P9045; Q9963